=== PATIENT | male | born 1945 | race Caucasian/White ===

== ENCOUNTER → 2018-12-15 08:02 | Outpatient (CLI) | payer MEDICARE, SELFPAY ==
[2018-12-15 10:23] LABS: Add Manual Diff / Slide Review NO; Basophils Absolute Auto 100 /uL (0-100); Basophils Percent Auto 1.6 % (0-2); Eosinophils Absolute Auto 800 /uL (0-450); Eosinophils Percent Auto 10.2 % (2-4); Hematocrit 40.7 % (41-53); Lymphocytes Absolute Auto 1500 /uL (1100-4500); Lymphocytes Percent Auto 17.9 % (25-40); Mean Corpuscular HGB Conc 34.4 % (30-36); Mean Corpuscular Hemoglobin 32.5 PG (26-34); Mean Corpuscular Volume 94.7 fL (80-100); Monocytes Absolute Auto 900 /uL (0-900); Neutrophils Absolute Auto 4900 /uL (1500-7000); Neutrophils Percent Auto 59.3 % (50-75); Red Cell Distribution Width 14.7 % (11.6-14.8); White Blood Cell Count 8.3 X10^3/uL (4.5-11.0)
[2018-12-15 10:30] LABS: Platelet Count 949 X10^3/uL (150-400)
[2018-12-15 10:43] LABS: Platelet Estimate Increased on smear
[2018-12-15 11:10] LABS: Alanine Aminotransferase 38 IU/L (21-72); Albumin 4.2 g/dL (3.5-5.0); Albumin Globulin Ratio 1.4 (1.0-2.8); Alkaline Phosphatase 61 U/L (38-126); Aspartate Aminotransferase 39 IU/L (17-59); BUN Creatinine Ratio 22.5 (6-22); Bilirubin Total 0.3 mg/dL (0.2-1.3); Blood Urea Nitrogen 18 mg/dL (9-20); Calcium 9.3 mg/dL (8.4-10.2); Carbon Dioxide 25 mmol/L (22-32); Chloride 104 mmol/L (98-107); Cholesterol 190 mg/dL (140-199); Estimated Glomerular Filt Rate > 60.0 mL/min (>60); Glucose 92 mg/dL (80-110); HDL Cholesterol 38 mg/dL (40-60); HEMOLYSIS < 15 (0-50); LDL Cholesterol Calculated 123 mg/dL (<100); Potassium 3.9 mmol/L (3.4-5.1); Sodium 139 mmol/L (137-145); Total Protein 7.2 g/dL (6.3-8.2); Triglycerides 146 mg/dL (35-150)
[2018-12-15 11:30] LABS: Appearance Urine UA CLEAR; Bilirubin Urine UA NEGATIVE (NEGATIVE); Color Urine UA YELLOW; Glucose Urine UA NEGATIVE (Negative); Ketones Urine UA NEGATIVE (NEGATIVE); Leukocyte Esterase Urine UA NEGATIVE (NEGATIVE); Nitrite Urine UA NEGATIVE (Negative); Occult Blood Urine UA NEGATIVE (Negative); Protein Urine UA NEGATIVE (Negative); Specific Gravity Urine UA 1.025 (1.000-1.035); Thyroid Stimulating Hormone 3.13 uIU/mL (0.47-4.68); Urobilinogen Urine UA 0.2 E.U./dL (0.2)
[2018-12-15 11:37] LABS: Prostate Specific Antigen Scrn 2.68 ng/mL (0.1-4.0)
== END ==
PROVIDERS: PCP Family Medicine; Visit Provider Family Medicine
DX: Z13.220 Encounter for screening for lipoid disorders (principal); Z13.29 Encounter for screening for other suspected endocrine disorder; Z51.81 Encounter for therapeutic drug level monitoring; Z12.5 Encounter for screening for malignant neoplasm of prostate
CPT/HCPCS: 36415; 80053; 80061; 81003; 84443; 85025; G0103

== ENCOUNTER → 2018-12-17 07:14 | Outpatient (CLI) | payer MEDICARE, SELFPAY ==
[2018-12-17 07:36] LABS: Hematocrit 41.9 % (41-53); Mean Corpuscular HGB Conc 33.5 % (30-36); Mean Corpuscular Hemoglobin 31.7 PG (26-34); Mean Corpuscular Volume 94.6 fL (80-100); Red Blood Cell Count 4.43 X10^6/uL (4.5-5.9); Red Cell Distribution Width 14.5 % (11.6-14.8); White Blood Cell Count 9.3 X10^3/uL (4.5-11.0)
[2018-12-17 07:42] LABS: Platelet Count 906 X10^3/uL (150-400)
[2018-12-17 08:17] LABS: Neutrophils Absolute Manual 3999 /uL (3000-5900); Total Cells Counted 100
[2018-12-17 08:21] LABS: RBC Morphology Normal Morphology
== END ==
PROVIDERS: PCP Family Medicine; Visit Provider Family Medicine
DX: R79.89 Other specified abnormal findings of blood chemistry (principal)
CPT/HCPCS: 36415; 85025

== ENCOUNTER → 2019-06-22 07:12 | Outpatient (CLI) | payer MEDICARE, SELFPAY ==
--- NOTE | 2019-06-22 07:14 | DI.US.S_ITS ---
PROCEDURE: US ABDOMEN COMPLETE INDICATIONS: ESSENTIAL THROMBOCYTOSIS TECHNIQUE: Real-time scanning was performed of the abdominal and retroperitoneal organs, with image documentation. COMPARISON: None. FINDINGS: Liver: Liver is normal in size and homogeneous in echotexture. Gallbladder: Gallbladder is normal. No gallstones. No gallbladder wall thickening, pericholecystic fluid or sonographic Hitchcock's sign. Biliary ducts: Intrahepatic bile ducts are non-dilated. Extrahepatic bile duct caliber measures 3.3 mm. Normal is 6-7 mm or less in diameter, or 10 mm or less post-cholecystectomy. Pancreas: Visualized portions of the pancreas are sonographically normal. Spleen: Spleen is normal in size and homogeneous in echotexture measuring 10.8 cm in length with an estimated volume of 159 cc. The splenic vein is patent. Kidneys: Kidneys are normal in size and echotexture. Right kidney measures 10.7 cm long; left kidney measures 10.4 cm long. No hydronephrosis or nephrolithiasis. No solid masses. Aorta: Mild fusiform dilation of the distal abdominal aorta measuring 2.9 x 2.6 cm. Iliacs: Proximal common iliac arteries are obscured. IVC: Intrahepatic inferior vena cava is patent. Miscellaneous: No free abdominal fluid. IMPRESSION: 1. Mild abdominal aortic ectasia measuring 2.9 x 2.6 cm in the distal abdominal aorta. Recommend followup ultrasound in 5 years. 2. Otherwise normal abdominal ultrasound exam. Dictated by: Gumaro Tyson M.D. on 06/22/2019 at 8:07 Approved by: Gumaro Tyson M.D. on 06/22/2019 at 8:14
== END ==
PROVIDERS: PCP Family Medicine; Visit Provider Internal Medicine Hematology & Oncology
DX: D47.3 Essential (hemorrhagic) thrombocythemia (principal); I77.811 Abdominal aortic ectasia
CPT/HCPCS: 76700

== ENCOUNTER → 2019-06-30 08:31 | Outpatient (CLI) | payer MEDICARE, SELFPAY ==
[2019-06-30 08:51] LABS: Add Manual Diff / Slide Review NO; Basophils Absolute Auto 100 /uL (0-100); Basophils Percent Auto 1.1 % (0-2); Eosinophils Absolute Auto 800 /uL (0-450); Eosinophils Percent Auto 9.9 % (2-4); Hematocrit 36.7 % (41-53); Hemoglobin 12.6 g/dL (13.5-17.5); Lymphocytes Absolute Auto 1200 /uL (1100-4500); Lymphocytes Percent Auto 15.3 % (25-40); Mean Corpuscular HGB Conc 34.4 % (30-36); Mean Corpuscular Hemoglobin 32.8 PG (26-34); Mean Corpuscular Volume 95.5 fL (80-100); Monocytes Absolute Auto 800 /uL (0-900); Monocytes Percent Auto 10.8 % (3-14); Neutrophils Absolute Auto 4800 /uL (1500-7000); Neutrophils Percent Auto 62.9 % (50-75); Red Blood Cell Count 3.85 X10^6/uL (4.5-5.9); Red Cell Distribution Width 14.9 % (11.6-14.8); White Blood Cell Count 7.6 X10^3/uL (4.5-11.0)
[2019-06-30 09:11] LABS: Alanine Aminotransferase 34 IU/L (<50); Albumin Globulin Ratio 1.5 (1.0-2.8); Alkaline Phosphatase 60 U/L (38-126); Aspartate Aminotransferase 37 IU/L (17-59); Bilirubin Total 0.4 mg/dL (0.2-1.3); Blood Urea Nitrogen 20 mg/dL (9-20); Calcium 9.3 mg/dL (8.4-10.2); Carbon Dioxide 26 mmol/L (22-32); Chloride 107 mmol/L (98-107); Estimated Glomerular Filt Rate > 60.0 mL/min (>60); Globulin 2.7 g/dL (1.7-4.1); Glucose 96 mg/dL (80-110); HEMOLYSIS < 15 (0-50); Potassium 4.2 mmol/L (3.4-5.1); Sodium 141 mmol/L (137-145); Total Protein 6.7 g/dL (6.3-8.2)
[2019-06-30 09:15] LABS: Platelet Count 760 X10^3/uL (150-400); RBC Morphology Normal Morphology
== END ==
PROVIDERS: PCP Family Medicine; Visit Provider Internal Medicine Hematology & Oncology
DX: D47.3 Essential (hemorrhagic) thrombocythemia (principal)
CPT/HCPCS: 36415; 80053; 85025

== ENCOUNTER 2019-07-28 02:10 | Emergency (ER) | payer MEDICARE, SELFPAY ==
[2019-07-28] VITALS (7 sets, daily range): BP systolic 135–160; BP diastolic 55–66; PULSE 102–115; RESP 20–24; TEMP 38.2–39.6; O2SAT 93–94; BMI 25.8
--- NOTE | 2019-07-28 02:17 | DI.RAD.S_ITS ---
PROCEDURE: XR CHEST 1V INDICATIONS: cough fever TECHNIQUE: One view of the chest was acquired. COMPARISON: [facility], , CHEST 2 VIEW, 11/14/2017, 15:59. FINDINGS: Surgical changes and devices: None. Lungs and pleura: Lungs are clear. No pleural effusions or pneumothorax. Mediastinum: Mediastinal contours appear normal. Heart size is normal. Bones and chest wall: No suspicious bony lesions. Overlying soft tissues appear unremarkable. IMPRESSION: 1. No acute cardiopulmonary disease. Dictated by: Michoacano Rankin M.D. on 07/28/2019 at 9:52 Approved by: Michoacano Rankin M.D. on 07/28/2019 at 9:52
[2019-07-28 02:34] LABS: Add Manual Diff / Slide Review NO; Basophils Absolute Auto 0 /uL (0-100); Basophils Percent Auto 0.2 % (0-2); Eosinophils Absolute Auto 100 /uL (0-450); Eosinophils Percent Auto 0.7 % (2-4); Hemoglobin 12.3 g/dL (13.5-17.5); Lymphocytes Absolute Auto 200 /uL (1100-4500); Mean Corpuscular HGB Conc 35.1 % (30-36); Mean Corpuscular Hemoglobin 33.1 PG (26-34); Mean Corpuscular Volume 94.2 fL (80-100); Monocytes Absolute Auto 400 /uL (0-900); Monocytes Percent Auto 5.9 % (3-14); Neutrophils Absolute Auto 6300 /uL (1500-7000); Neutrophils Percent Auto 90.2 % (50-75); Platelet Count 492 X10^3/uL (150-400); Red Blood Cell Count 3.72 X10^6/uL (4.5-5.9); Red Cell Distribution Width 15.6 % (11.6-14.8)
[2019-07-28 02:43] LABS: Lactate (Lactic Acid) 1.2 mmol/L (0.7-2.1)
[2019-07-28] MEDS: SODIUM CHLORIDE 0.9% 1,000 ML 1000 ML IV ×2 (02:43→03:43)
[2019-07-28] MEDS: KETOROLAC 60 MG/2 ML VIAL 30 MG IV (02:44)
[2019-07-28 02:45] LABS: Alanine Aminotransferase 41 IU/L (<50); Albumin 4.2 g/dL (3.5-5.0); Albumin Globulin Ratio 1.4 (1.0-2.8); Alkaline Phosphatase 72 U/L (38-126); Aspartate Aminotransferase 45 IU/L (17-59); BUN Creatinine Ratio 24.4 (6-22); Bilirubin Total 0.4 mg/dL (0.2-1.3); Blood Urea Nitrogen 22 mg/dL (9-20); Calcium 9.2 mg/dL (8.4-10.2); Carbon Dioxide 26 mmol/L (22-32); Chloride 102 mmol/L (98-107); Creatine Kinase 25 U/L (55-170); Estimated Glomerular Filt Rate > 60.0 mL/min (>60); Glucose 141 mg/dL (80-110); HEMOLYSIS < 15 (0-50); Sodium 136 mmol/L (137-145); Total Protein 7.2 g/dL (6.3-8.2)
[2019-07-28 02:56] LABS: Troponin I 0.016 ng/mL (0.01-0.034)
[2019-07-28 03:02] LABS: Influenza A - CEPHEID Flu A NEGATIVE (NEGATIVE); Influenza B - CEPHEID Flu B NEGATIVE (NEGATIVE)
--- NOTE | 2019-07-28 03:04 | ED.AMS ---
HPI - Altered Mental Status General Chief Complaint: Altered Mental Status Stated Complaint: disoriented, weak shaking Time Seen by Provider: 07/28/19 02:17 Source: family Mode of arrival: Wheelchair Limitations: altered mental status History of Present Illness HPI narrative: Patient is a 74-year-old male with history of polycythemia vera, brought in by his for shaking and confusion started at 11pm. She states he has not been feeling well for the last few days, he has had cough any had at episode of shaking the night before by PCP is 2 days ago thought to have respiratory virus, he was given his influenza vaccine and discharged. Today he has been weaker but able to oyster picker granddaughter he did go to bed a little early she was not asleep yet when she noticed that he was shaking and seemed very confused. No slurring of speech or unilateral weakness. He currently is confused about his the gilberto state and age but is overall able to follow directions. He is noted to have a fever of 103 in the emergency department. He apparently had bone marrow biopsy last week in his right hip. There initially was a rash which continues to be persistent however states that it doesn't seem to be any worse. It was previously tender but over last few days has become nontender. MD complaint: confusion Onset (ago): hour(s) Related Data Home Medications Medication Instructions Recorded Confirmed montelukast 10 mg tablet 10 mg PO QPM 12/14/18 07/26/19 aspirin 81 mg PO DAILY 01/14/19 07/26/19 albuterol sulfate [Ventolin HFA] 1 puff INH Q6HP PRN 03/08/19 07/26/19 Previous Rx's Medication Instructions Recorded Symbicort 2 inh INH BID #3 inh 10/28/17 hydroxyurea 500 mg PO DAILY #90 cap 06/17/19 Allergies Allergy/AdvReac Type Severity Reaction Status Date / Time iodine [IODINE] Allergy Unknown Verified 07/26/19 13:57 Review of Systems Review of Systems ROS Unobtainable: All systems reviewed & are unremarkable except as noted in HPI and below Constitutional Constitutional: Reports as per HPI, Reports fever(s), Denies frequent falls and Reports weakness ENT Ears, Nose, Mouth, and Throat: Denies change in voice, Denies neck pain and Denies sore throat Cardiovascular Cardiovascular: Denies chest pain, Denies irregular heart rhythm, Denies lightheadedness, Denies palpitations, Denies dyspnea, Denies dyspnea on exertion and Denies orthopnea Respiratory Respiratory: Reports cough, Denies dyspnea, Denies dyspnea on exertion and Denies wheezing Genitourinary Genitourinary: Denies hematuria, Denies flank pain, Denies urinary incontinence and Denies urinary urgency Musculoskeletal Musculoskeletal: Denies neck pain Neurologic Neurologic: Reports as per HPI, Denies abnormal speech, Reports confusion, Denies frequent falls, Denies convulsions and Reports weakness Psychiatric Psychiatric: Reports confusion Endocrine Endocrine: Denies palpitations Allergic/Immunologic Allergic/Immunologic: Denies wheezing Patient History Medical History Asthma (Acute) Polycythemia vera (Acute) Surgical History Status post hernia repair Family History Sister Cancer Sister Cancer Social History Smoking Status: Former smoker Tobacco: How many years used: 7 alcohol intake: current substance use type: does not use Smoking Status: Former smoker alcohol intake frequency: other Exam Initial Vital Signs Initial Vital Signs: Vital Signs Temperature 103.2 F H 07/28/19 02:15 Pulse Rate 115 H 07/28/19 02:15 Respiratory Rate 22 07/28/19 02:15 Blood Pressure 160/61 H 07/28/19 02:15 Pulse Oximetry 94 07/28/19 02:15 GENERAL: Awake alert elderly male and in no acute distress. HEENT: Head atraumatic,EOMI, pupils reactive, face symmetric, CARDIOVASCULAR: Tachycardic regular no murmurs RESPIRATORY: Breath sounds equal bilaterally, no wheezes rales or rhonchi. ABDOMEN: Soft, nontender. Normoactive bowel sounds all 4 quadrants. No guarding or rebound. EXTREMITIES: Normal range of motion, no clubbing or edema. Neurovascularly intact NEUROLOGICAL: Alert and oriented person only hand buffing wheel former strength equal bilaterally face symmetric no blurry vision or double vision moving extremities able to help transfer from wheelchair to gurney SKIN: Warm, dry, no laceration, no petechiae, no rashes or lesions. Right flank just above the iliac crest as the site of biopsy there is a very minimal rash noted there no induration no fluctuation no sign of acute infection Scores GCS [place] coma scale eye opening: Spontaneous Andree coma scale verbal response: Confused [place]ree coma scale motor response: Obey commands [place] coma scale total score: 14 NIH Stroke Scale Level of Conciousness: Alert, keenly responsive Ask month/age: Answers both questions correctly. Open/close eyes, close hand: Performs both tasks correctly Best gaze horizontal: Normal Visual peña: No visual loss Facial palsy: Normal symetrical movement Left arm drift: No drift for full 10 sec Right arm drift: No drift for full 10 sec Left leg drift: No drift for full 10 sec Right leg drift: No drift for full 10 sec Limb ataxia: Absent Sensory on face/arms/legs: Normal, no sensory loss Best language: No aphasia, normal Dysarthria: Normal Extinction or inattention: No abnormality Total NIH Stroke scale score: 0 Course Orders Ordered: ED Orders 07/28/19 02:17 XR chest 1V Stat EKG-12 Lead Stat 07/28/19 02:25 Complete Blood Count AUTO DIFF Stat Comprehensive Metabolic Panel Stat Influenza A & B (PCR) Stat Lactate (Lactic Acid) Stat Procalcitonin Stat Troponin & CK Cardiac Panel Stat 07/28/19 02:58 Blood Culture Stat 07/28/19 03:25 Respiratory Panel (Film Array) Stat Discontinued Medications Sodium Chloride (Normal Saline 0.9%) 1,000 mls @ 1,000 mls/hr IV CONT WOODY Last Infusion: 07/28/19 03:43 Dose: 0 mls/hr Documented by: Admin: 07/28/19 02:43 Dose: 1,000 mls/hr Documented by: ANNE Sodium Chloride (Normal Saline 0.9%) 1,000 mls @ 1,000 mls/hr IV BOLUS ONE Stop: 07/28/19 04:29 Last Infusion: 07/28/19 05:12 Dose: 0 mls/hr Documented by: Admin: 07/28/19 03:43 Dose: 1,000 mls/hr Documented by: ANNE Ketorolac Tromethamine (Toradol) 30 mg IV NOW ONE Stop: 07/28/19 02:34 Last Admin: 07/28/19 02:44 Dose: 30 mg Documented by: HGUBERN Vital Signs Vital signs: Vital Signs - 8 hr 07/28/19 02:15 07/28/19 03:20 07/28/19 03:25 Temperature 103.2 F H 102.7 F H Pulse Rate 115 H 102 H Respiratory Rate 22 21 Blood Pressure 160/61 H Blood Pressure [Right Arm] 139/55 L Pulse Oximetry 94 94 07/28/19 03:44 07/28/19 04:04 07/28/19 04:06 Temperature 102.7 F H 100.7 F H Pulse Rate 105 H Respiratory Rate 20 Blood Pressure Blood Pressure [Right Arm] 135/65 Pulse Oximetry 94 07/28/19 04:52 Temperature Pulse Rate 104 H Respiratory Rate 24 Blood Pressure Blood Pressure [Right Arm] 136/66 Pulse Oximetry 93 MDM - Altered Mental Status Lab Data Attestation: I reviewed the patient's lab results. Result diagrams: 07/28/19 02:25 07/28/19 02:25 Labs: Lab Results 07/28/19 07/28/19 07/28/19 Range/Units 02:25 02:25 02:25 WBC 7.0 (4.5-11.0) X10^3/uL RBC 3.72 L (4.5-5.9) X10^6/uL Hgb 12.3 L (13.5-17.5) g/dL Hct 35.0 L (41-53) % MCV 94.2 (80-100) fL MCH 33.1 (26-34) PG MCHC 35.1 (30-36) % RDW 15.6 H (11.6-14.8) % Plt Count 492 H (150-400) X10^3/uL Neut % (Auto) 90.2 H (50-75) % Lymph % (Auto) 3.0 L (25-40) % [place] % (Auto) 5.9 (3-14) % Eos % (Auto) 0.7 L (2-4) % Baso % (Auto) 0.2 (0-2) % Neut # (Auto) 6300 (8720-4871) /uL Lymph # (Auto) 200 L (0809-8426) /uL [place] # (Auto) 400 (0-900) /uL Eos # (Auto) 100 (0-450) /uL Baso # (Auto) 0 (0-100) /uL Sodium 136 L (137-145) mmol/L Potassium 4.0 (3.4-5.1) mmol/L Chloride 102 (98-107) mmol/L Carbon Dioxide 26 (22-32) mmol/L BUN 22 H (9-20) mg/dL Creatinine 0.90 (0.66-1.25) mg/dL Estimated GFR > 60.0 (>60) mL/min BUN/Creatinine Ratio 24.4 H (6-22) Glucose 141 H (80-110) mg/dL Lactate (0.7-2.1) mmol/L Calcium 9.2 (8.4-10.2) mg/dL Total Bilirubin 0.4 (0.2-1.3) mg/dL AST 45 (17-59) IU/L ALT 41 (<50) IU/L Alkaline Phosphatase 72 (38-126) U/L Total Creatine Kinase 25 L (55-170) U/L CK-MB (CK-2) TNP CK-MB (CK-2) Rel Index TNP Troponin I 0.016 (0.01-0.034) ng/mL Total Protein 7.2 (6.3-8.2) g/dL Albumin 4.2 (3.5-5.0) g/dL Globulin 3.0 (1.7-4.1) g/dL Albumin/Globulin Ratio 1.4 (1.0-2.8) Procalcitonin 0.19 (<0.5) ng/mL Chlamy pneumoniae PCR (Not Detect) Adenovirus (PCR) (Not Detect) B.parapertussis DNA PCR (Not Detect) Coronavirus OC43 (PCR) (Not Detect) Coronavirus HKU1 (PCR) (Not Detect) Coronavirus 229E (PCR) (Not Detect) Coronavirus NL63 (PCR) (Not Detect) Human Metapneumovir PCR (Not Detect) Influenza A (RT-PCR) (NEGATIVE) Influenza Type A (PCR) (Not Detect) Influenza B (RT-PCR) (NEGATIVE) Influenza Type B (PCR) (Not Detect) M. pneumoniae (PCR) (Not Detect) Parainfluenza 1 (PCR) (Not Detect) Parainfluenza 2 (PCR) (Not Detect) Parainfluenza 3 (PCR) (Not Detect) Parainfluenza 4 (PCR) (Not Detect) RSV (PCR) (Not Detect) Entero/Rhino (PCR) (Not Detect) 07/28/19 07/28/19 07/28/19 Range/Units 02:25 02:25 03:25 WBC (4.5-11.0) X10^3/uL RBC (4.5-5.9) X10^6/uL Hgb (13.5-17.5) g/dL Hct (41-53) % MCV (80-100) fL MCH (26-34) PG MCHC (30-36) % RDW (11.6-14.8) % Plt Count (150-400) X10^3/uL Neut % (Auto) (50-75) % Lymph % (Auto) (25-40) % [place] % (Auto) (3-14) % Eos % (Auto) (2-4) % Baso % (Auto) (0-2) % Neut # (Auto) (8485-0554) /uL Lymph # (Auto) (6419-0082) /uL [place] # (Auto) (0-900) /uL Eos # (Auto) (0-450) /uL Baso # (Auto) (0-100) /uL Sodium (137-145) mmol/L Potassium (3.4-5.1) mmol/L Chloride (98-107) mmol/L Carbon Dioxide (22-32) mmol/L BUN (9-20) mg/dL Creatinine (0.66-1.25) mg/dL Estimated GFR (>60) mL/min BUN/Creatinine Ratio (6-22) Glucose (80-110) mg/dL Lactate 1.2 (0.7-2.1) mmol/L Calcium (8.4-10.2) mg/dL Total Bilirubin (0.2-1.3) mg/dL AST (17-59) IU/L ALT (<50) IU/L Alkaline Phosphatase (38-126) U/L Total Creatine Kinase (55-170) U/L CK-MB (CK-2) CK-MB (CK-2) Rel Index Troponin I (0.01-0.034) ng/mL Total Protein (6.3-8.2) g/dL Albumin (3.5-5.0) g/dL Globulin (1.7-4.1) g/dL Albumin/Globulin Ratio (1.0-2.8) Procalcitonin (<0.5) ng/mL Chlamy pneumoniae PCR Not detected (Not Detect) Adenovirus (PCR) Not detected (Not Detect) B.parapertussis DNA PCR Not detected (Not Detect) Coronavirus OC43 (PCR) Not detected (Not Detect) Coronavirus HKU1 (PCR) Not detected (Not Detect) Coronavirus 229E (PCR) Not detected (Not Detect) Coronavirus NL63 (PCR) Not detected (Not Detect) Human Metapneumovir PCR Not detected (Not Detect) Influenza A (RT-PCR) Flu a negative (NEGATIVE) Influenza Type A (PCR) Not detected (Not Detect) Influenza B (RT-PCR) Flu b negative (NEGATIVE) Influenza Type B (PCR) Not detected (Not Detect) M. pneumoniae (PCR) Not detected (Not Detect) Parainfluenza 1 (PCR) Not detected (Not Detect) Parainfluenza 2 (PCR) Not detected (Not Detect) Parainfluenza 3 (PCR) Not detected (Not Detect) Parainfluenza 4 (PCR) Not detected (Not Detect) RSV (PCR) Not detected (Not Detect) Entero/Rhino (PCR) Not detected (Not Detect) Urine Dip Bedside Urine Glucose Negative Bedside Urine Bilirubin - Negative Bedside Urine Ketone +/- 5 Urine Specific Industry 1.025 Bedside Urine Occult Blood - Negative Bedside Urine pH 5.5 Bedside Urine Protein +/- 15 Bedside Urine Nitrite - Negative Bedside Urine Leukocytes - Negative Esterase Imaging Data Chest x-ray: Attestation: I personally reviewed and interpreted this imaging study as follows: My impression: No acute cardiopulmonary process ECG Data Attestation: I personally reviewed and interpreted this ECG as follows: Prior ECG tracings: not available for review Interpretation: Normal sinus rhythm rate 1029 p.r. interval 148 QRS [address] elevation depression no T-wave inversion no prior to compare [facility] Narrative Medical decision making narrative: Patient presents with infectious like systems of shaking and confusion with fever of 103. He has had some cough upper respiratory like symptoms. Respiratory panel influenza and chest x-ray are all negative. He has no leukocytosis elevated procalcitonin her lactic acid at this time no indication for antibiotics. As his temperature has decreased and he has received IV fluids he has overall come around and back to his baseline. He is ambulatory in the emergency department without any difficulty. He feels ready in able to go home. I do suspect that this may be influenza however initial influenza testing is negative. I discussed with patient and to increase fluids, and warning signs when to return to the emergency department. At this time no indication for admission. His symptoms have improved. His heart rate has also come down with IV fluids. Received 2 L while emergency department. I discussed all findings with the patient and , Education has been performed regarding treatment plan, diagnosis, warning signs and symptoms and all concerns have been addressed. Verbally agree with and understood all of the above. Discharge Plan Departure Patient Disposition: Home Clinical Impression: URI (upper respiratory infection) Qualifiers: URI type: unspecified viral URI Qualified Code(s): J06.9 - Acute upper respiratory infection, unspecified Discharge Date/Time: 07/28/19 05:10 Instructions: DI for Viral Syndrome Activity Restrictions/Additional Instructions: *You have been diagnosed with viral syndrome *What to do: Likely upper respiratory infection, influenza and viral panel are negative blood work overall is reassuring recommend fever control and increasing fluid intake. Infusion is likely due to fever and infection today. *Continue to take medications as directed Tylenol 650 mg every 4-6 hours if needed for fever Ibuprofen 600 mg every 6-8 hours if *Follow up with your primary care provider in 2-3 days *Return to ER if you should have increased confusion, shortness of breath, persistent cough, or any new, worsening or concerning symptoms Prescriptions: No Action Symbicort 80 MCG/4.5 MCG HFA aerosol inhaler 2 inh INH BID Qty: 3 RF: 1 montelukast [Singulair] 10 mg tablet 10 mg PO QPM RF: 0 aspirin 81 mg Tablet,Chewable 81 mg PO DAILY RF: 0 albuterol sulfate [Ventolin HFA] 90 MCG/PUFF HFA aerosol inhaler 1 puff INH Q6HP PRN (Reason: Shortness Of Breath) RF: 0 hydroxyurea 500 mg Capsule 500 mg PO DAILY Qty: 90 RF: 3 Referrals: Miryam Coats DO [Primary Care Provider] -
[2019-07-28 03:09] LABS: Procalcitonin 0.19 ng/mL (<0.5)
[2019-07-28 04:42] LABS: Adenovirus Not Detected (Not Detect); Bordetella pertussis Not Detected (Not Detect); Chlamydophila pneumoniae Not Detected (Not Detect); Coronavirus 229E Not Detected (Not Detect); Coronavirus HKU1 Not Detected (Not Detect); Coronavirus NL 63 Not Detected (Not Detect); Coronavirus OC43 Not Detected (Not Detect); Human Metapneumovirus Not Detected (Not Detect); Human Rhinovirus/Enterovirus Not Detected (Not Detect); Influenza A Not Detected (Not Detect); Influenza B Not Detected (Not Detect); Mycoplasma pneumoniae Not Detected (Not Detect); Parainfluenza Virus 1 Not Detected (Not Detect); Parainfluenza Virus 2 Not Detected (Not Detect); Parainfluenza Virus 3 Not Detected (Not Detect); Parainfluenza Virus 4 Not Detected (Not Detect); Respiratory Syncytial Virus Not Detected (Not Detect)
== END 2019-07-28 05:10 | disposition home or self-care (01) ==
PROVIDERS: Emergency Provider Emergency Medicine; PCP Family Medicine
DX: J06.9 Acute upper respiratory infection, unspecified (principal); R00.0 Tachycardia, unspecified
CPT/HCPCS: 36415; 71045; 80053; 81003; 82550; 83605; 84145; 84484; 85025; 87040; 87502; 87633; 93005; 93010; 96361; 96374; 99284; 99285; J1885

== ENCOUNTER → 2020-01-10 09:29 | Outpatient (CLI) | payer MEDICARE, SELFPAY ==
[2020-01-10 10:32] LABS: Add Manual Diff / Slide Review NO; Basophils Absolute Auto 100 /uL (0-100); Basophils Percent Auto 1.4 % (0-2); Eosinophils Absolute Auto 200 /uL (0-450); Eosinophils Percent Auto 2.9 % (2-4); Hematocrit 37.3 % (41-53); Hemoglobin 12.8 g/dL (13.5-17.5); Lymphocytes Absolute Auto 1500 /uL (1100-4500); Lymphocytes Percent Auto 18.2 % (25-40); Mean Corpuscular HGB Conc 34.3 % (30-36); Mean Corpuscular Hemoglobin 34.9 PG (26-34); Mean Corpuscular Volume 101.8 fL (80-100); Monocytes Absolute Auto 800 /uL (0-900); Monocytes Percent Auto 10.1 % (3-14); Neutrophils Absolute Auto 5600 /uL (1500-7000); Neutrophils Percent Auto 67.4 % (50-75); Platelet Count 738 X10^3/uL (150-400); Red Blood Cell Count 3.67 X10^6/uL (4.5-5.9); Red Cell Distribution Width 16.3 % (11.6-14.8); White Blood Cell Count 8.3 X10^3/uL (4.5-11.0)
== END ==
PROVIDERS: PCP Family Medicine; Referring Provider Internal Medicine Hematology & Oncology; Visit Provider Internal Medicine Hematology & Oncology
DX: D47.3 Essential (hemorrhagic) thrombocythemia (principal)
CPT/HCPCS: 36415; 85025

== ENCOUNTER → 2020-02-19 11:48 | Outpatient (CLI) | payer MEDICARE, SELFPAY ==
[2020-02-21 15:10] LABS: Fecal Immunochemical Test Negative (Negative)
== END ==
PROVIDERS: PCP Internal Medicine; Referring Provider Internal Medicine; Visit Provider Internal Medicine
DX: Z12.11 Encounter for screening for malignant neoplasm of colon (principal)
CPT/HCPCS: 82274

== ENCOUNTER → 2020-03-27 14:44 | Outpatient (CLI) | payer MEDICARE, SELFPAY ==
[2020-03-28 07:38] LABS: PSA Free % 14.4 % (.); PSA, Total 4.8 ng/mL (0.0-4.0)
== END ==
PROVIDERS: PCP Internal Medicine; Referring Provider Internal Medicine; Visit Provider Internal Medicine
DX: R97.20 Elevated prostate specific antigen [PSA] (principal)
CPT/HCPCS: 36415; 84153; 84154

== ENCOUNTER → 2020-09-08 11:24 | Outpatient (CLI) | payer MEDICARE, SELFPAY ==
[2020-09-08] MEDS: COVID-19 VACC #1, MRNA(MOD) 100 MCG/0.5 ML VIAL IM (11:32)
== END ==
PROVIDERS: PCP Internal Medicine; Visit Provider Internal Medicine
DX: Z23 Encounter for immunization (principal)
CPT/HCPCS: 0011A; 91301

== ENCOUNTER → 2020-09-29 13:38 | Outpatient (CLI) | payer MEDICARE, SELFPAY ==
[2020-09-29 13:59] LABS: Add Manual Diff / Slide Review NO; Basophils Absolute Auto 100 /uL (0-100); Basophils Percent Auto 1.2 % (0-2); Eosinophils Absolute Auto 300 /uL (0-450); Eosinophils Percent Auto 5.8 % (2-4); Hematocrit 35.5 % (41-53); Hemoglobin 12.2 g/dL (13.5-17.5); Lymphocytes Absolute Auto 900 /uL (1100-4500); Lymphocytes Percent Auto 18.5 % (25-40); Mean Corpuscular HGB Conc 34.5 % (30-36); Mean Corpuscular Volume 110.3 fL (80-100); Monocytes Absolute Auto 500 /uL (0-900); Monocytes Percent Auto 10.7 % (3-14); Neutrophils Absolute Auto 3000 /uL (1500-7000); Neutrophils Percent Auto 63.8 % (50-75); Platelet Count 638 X10^3/uL (150-400); Red Blood Cell Count 3.22 X10^6/uL (4.5-5.9); Red Cell Distribution Width 14.4 % (11.6-14.8); White Blood Cell Count 4.7 X10^3/uL (4.5-11.0)
[2020-09-29 14:12] LABS: Macrocytosis 1+
[2020-09-29 14:13] LABS: Platelet Estimate Increased on smear
== END ==
PROVIDERS: Internal Medicine Hematology & Oncology; PCP Internal Medicine; Referring Provider Internal Medicine; Visit Provider Internal Medicine
DX: R97.20 Elevated prostate specific antigen [PSA] (principal); D47.3 Essential (hemorrhagic) thrombocythemia
CPT/HCPCS: 36415; 84153; 85025

== ENCOUNTER → 2020-10-06 11:12 | Outpatient (CLI) | payer MEDICARE, SELFPAY ==
[2020-10-06] MEDS: COVID-19 VACC #2, MRNA(MOD) 100 MCG/0.5 ML VIAL IM (11:14)
== END ==
PROVIDERS: PCP Internal Medicine; Visit Provider Internal Medicine
DX: Z23 Encounter for immunization (principal)
CPT/HCPCS: 0012A; 91301

== ENCOUNTER 2021-01-08 13:16 | Emergency (ER) | payer MEDICARE, SELFPAY ==
[2021-01-08 13:29] VITALS: BP 165/81; PULSE 96; RESP 18; TEMP 37.1; O2SAT 96; BMI 25.5
[2021-01-08 16:08] VITALS: BP 181/85; PULSE 76; TEMP 36.6; O2SAT 98
[2021-01-08] MEDS: BACITRACIN OINT 0.9 GM PCKT 1 APPLIC TOP (16:19)
[2021-01-08] MEDS: LIDO 1%/SOD BICARB 8.4% (10ML) 10 ML SYRINGE INJ (16:19)
[2021-01-08] MEDS: LIDOCAINE 2% W/EPI INJ 20 ML INJ (16:19)
--- NOTE | 2021-01-08 17:29 | PC.NURSE ---
U shape laceration involving 4th/5th digit.
--- NOTE | 2021-01-08 18:04 | ED_ITS ---
HPI - Extremity Injury (Upper) <KATIANA Gates - Last Filed: 01/08/21 23:13> General Chief Complaint: Extremity Injury, Upper Stated Complaint: Sliced Left Hand Time Seen by Provider: 01/08/21 16:11 Source: patient Mode of arrival: Ambulatory Limitations: no limitations History of Present Illness HPI narrative: This is a pleasant 75-year-old male, former smoker, who has past medical history significant for thrombocytosis presents to ED with chief complain of left hand, non dominant hand, laceration. 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 He states probably cut his hand on metal piece when he pulled the hand out. He reports intact sensation and is able to move all finger joints and flex and extend the affected hand. Last Td is unsure. Related Data Home Medications Medication Instructions Recorded Confirmed montelukast 10 mg tablet 10 mg PO QPM 12/14/18 01/12/21 aspirin 81 mg PO DAILY 01/14/19 01/12/21 albuterol sulfate [Ventolin HFA] 1 puff INH Q6HP PRN 03/08/19 01/12/21 Previous Rx's Medication Instructions Recorded budesonide-formoterol [Symbicort] 2 inh INH BID #3 inh 10/28/17 hydroxyurea [Hydrea] 500 mg PO USEASDIRECTD #1000 cap 06/26/20 Allergies Allergy/AdvReac Type Severity Reaction Status Date / Time iodine [IODINE] Allergy Unknown Verified 02/15/20 16:07 Review of Systems <KATIANA Gates - Last Filed: 01/08/21 23:13> Review of Systems Narrative: General: Denies fever, chills, fatigue, malaise, sweats. Respiratory: Denies dyspnea, cough, wheezing, hemoptysis, sputum. Cardiovascular: Denies chest pain, palpitations, orthopnea, edema. Gastrointestinal: Denies nausea, vomiting, abdominal pain, diarrhea, constipation, melena. Musculoskeletal: Denies weakness, joint pain or bony pain. Skin: See HPI Patient History <KATIANA Gates - Last Filed: 01/08/21 23:13> Medical History Asthma, mild intermittent Elevated PSA Essential thrombocytosis Surgical History Status post hernia repair Family History Sister Cancer Sister Cancer Social History Smoking Status: Former smoker Tobacco: How many years used: 7 alcohol intake: current substance use type: does not use Smoking Status: Former smoker alcohol intake frequency: other Substance Use Type: does not use Exam <KATIANA Gates - Last Filed: 01/08/21 23:13> Narrative Exam Narrative: General appearance: well developed, well nourished, in no acute distress. Head: normocephalic, atraumatic, no scalp lesions, non-tender. ENT: Hearing grossly intact. Airway patent. Neck/Thyroid: neck supple, full range of motion, no visible masses or meningeal signs. No JVD, non-tender without lymphadenopathy. Skin: 2 cm laceration on base of left ring finger MCP joint on volar aspect with slow oozing. 4 cm U shape flap like laceration on distal metacarpal of little finger of volar aspect of left hand. Heart: no clubbing, no cyanosis, no edema. S1 and S2 normal. RRR w/o murmurs, clicks, or bruits. Lungs: Breathing even and unlabored. No stridor. No accessory muscles used. Able to speak in full sentences. Chest: normal shape and expansion. Abdomen: non-obese, non-distended. Neurologic: alert and oriented. 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 Psych: good eye contact, normal affect. Initial Vital Signs Initial Vital Signs: Vital Signs Temperature 98.8 F 01/08/21 13:29 Pulse Rate 96 H 01/08/21 13:29 Respiratory Rate 18 01/08/21 13:29 Blood Pressure 165/81 H 01/08/21 13:29 Pulse Oximetry 96 01/08/21 13:29 Extrem Left upper extremity: hand Details: abnormal to inspection, neuromotor exam normal, neurosensory exam normal, tendon exam normal, tenderness, vascular exam Details: radial pulse present and normal capillary refill, normal ROM of fingers and laceration; no foreign bodies and no puncture wound <Paigesavanah CannonDO - Last Filed: 01/16/21 02:31> Initial Vital Signs Initial Vital Signs: Vital Signs Temperature 98.8 F 01/08/21 13:29 Pulse Rate 96 H 01/08/21 13:29 Respiratory Rate 18 01/08/21 13:29 Blood Pressure 165/81 H 01/08/21 13:29 Pulse Oximetry 96 01/08/21 13:29 Procedures <Yossi NegronCATE AlcantaraP - Last Filed: 01/08/21 23:13> Laceration Repair Laceration 1: Site: hand (L 5th distal metacarpal) Side (If applicable): left Size (cm): 4 Description: linear and flap Depth: simple, single layer Local Anesthetic: lidocaine 1%, with epi and with bicarb Amount of anesthesia used (mL): 8 Pre-repair: wound explored and irrigated extensively Skin layer closed with: nylon Size (cm): 4-0 Number of sutures: 7 Technique: simple, interrupted Laceration 2: Site: hand (Left 4th base of finger) Size (cm): 2 Description: linear Depth: simple, single layer Local Anesthetic: lidocaine 1%, with epi and with bicarb Amount of anesthesia used (mL): 2 Pre-repair: wound explored and irrigated extensively Skin layer closed with: nylon Size (cm): 4-0 Number of sutures: 3 Technique: simple, interrupted Scores <Yossi NegronCATE AlcantaraP - Last Filed: 01/08/21 23:13> GCS Huxford coma scale eye opening: Spontaneous Andree coma scale verbal response: Orientated Huxford coma scale motor response: Obey commands Andree coma scale total score: 15 Course <Yossi CATE SullivanP - Last Filed: 01/08/21 23:13> Orders Ordered: Discontinued Medications Bacitracin (Bacitracin Oint 0.9 Gm Pckt) 1 applic TOP NOW ONE Stop: 01/08/21 16:13 Last Admin: 01/08/21 16:19 Dose: 1 applic Documented by: YODIT Lidocaine/Epinephrine (Lidocaine 2% W/Epi Inj) 20 ml INJ INTRA-OP ONE Stop: 01/08/21 16:13 Last Admin: 01/08/21 16:19 Dose: 20 ml Documented by: BTONER Lidocaine/Sodium Bicarbonate (Lido 1%/Sod Bicarb 8.4% (10ml) 10 Ml Syringe) 10 ml INJ NOW ONE Stop: 01/08/21 16:13 Last Admin: 01/08/21 16:19 Dose: 10 ml Documented by: BTONER Vital Signs Vital signs: Vital Signs - 8 hr 01/08/21 16:08 01/08/21 18:18 Temperature 97.8 F Pulse Rate 76 89 Respiratory Rate 16 Blood Pressure 181/85 H 190/89 H Pulse Oximetry 98 98 <Paige Cannon DO - Last Filed: 01/16/21 02:31> Orders Ordered: Discontinued Medications Bacitracin (Bacitracin Oint 0.9 Gm Pckt) 1 applic TOP NOW ONE Stop: 01/08/21 16:13 Last Admin: 01/08/21 16:19 Dose: 1 applic Documented by: BTONER Lidocaine/Epinephrine (Lidocaine 2% W/Epi Inj) 20 ml INJ INTRA-OP ONE Stop: 01/08/21 16:13 Last Admin: 01/08/21 16:19 Dose: 20 ml Documented by: BTONER Lidocaine/Sodium Bicarbonate (Lido 1%/Sod Bicarb 8.4% (10ml) 10 Ml Syringe) 10 ml INJ NOW ONE Stop: 01/08/21 16:13 Last Admin: 01/08/21 16:19 Dose: 10 ml Documented by: BTONER Vital Signs Vital signs: Vital Signs - 8 hr 01/08/21 16:08 01/08/21 18:18 Temperature 97.8 F Pulse Rate 76 89 Respiratory Rate 16 Blood Pressure 181/85 H 190/89 H Pulse Oximetry 98 98 [facility] - Extremity Injury (Upper) <KATIANA Gates - Last Filed: 01/08/21 23:13> Differential Diagnosis Differential diagnosis: Likely other (hand/finger laceration) Medical Records Attestation: I reviewed the patient's medical records. [facility] Narrative Medical decision making narrative: This is a 75-year-old gentleman who presents to ED with 2 lacerations on palmar aspect of left hand in ring finger distal metacarpal and ring finger MCP joint. These lacerations were repaired by total 10 sutures and please see the procedural note. Discussed with patient of wound care at home, wound recheck in 2 days, suture removal in 7-10 days. Advised to hand splint was made by ortho glass to protect sutures. Return precautions discussed with patient and he verbalized understanding and agreement with the treatment plan. Discharge Plan Departure Patient Disposition: Home Clinical Impression: Laceration of hand Qualifiers: Encounter type: initial encounter Foreign body presence: without foreign body Laterality: left Qualified Code(s): S61.412A - Laceration without foreign body of left hand, initial encounter Instructions: DI for Laceration Repair Activity Restrictions/Additional Instructions: You have been diagnosed with [laceration in left 5th distal metacarpal and base of 4th finger repaired with well 10 sutures. Tdap has been updated today.]. What to do: *Take your medications as directed. You can take [id number] Tylenol as needed for discomfort. You can Take 650 mg up to 3 times a day as needed for pain. You can use hand splint tomorrow went bulky dressing is removed to protect sutures. *Follow up with your primary care provider in 2-3 days, call for an appointment for wound recheck. Let them know you were seen in the ED and that we asked you to be seen in follow up. Please do not get your wound soaked in the water until suture removal. Keep your dressing intact for next 24 hrs. After then, you could remove your dressing, wash with soap and water. Pat dry with clean paper towel and dress it with antibiotic ointment. You can change dressing as needed and daily. Please monitor for signs and symptoms for infection such as increasing redness, swelling, warmth, pain, fever, purulent discharge. If this occurs, please return to ED or follow up with your primary care physician since your wound may be gotten infected. Please follow up with your primary care provider in 2-3 days for recheck wound. Your suture should be removed [ 7-10 ] days. This can be done by your primary provider, walk-in clinic or here in ED. Please keep your wound clean, dry and intact all times. Prescriptions: No Action budesonide-formoterol [Symbicort] 80 MCG/4.5 MCG HFA aerosol inhaler 2 inh INH BID Qty: 3 RF: 1 montelukast [Singulair] 10 mg tablet 10 mg PO QPM RF: 0 aspirin 81 mg Tablet,Chewable 81 mg PO DAILY RF: 0 albuterol sulfate [Ventolin HFA] 90 MCG/PUFF HFA aerosol inhaler 1 puff INH Q6HP PRN (Reason: Shortness Of Breath) RF: 0 hydroxyurea [Hydrea] 500 mg Capsule 500 mg PO USEASDIRECTD Qty: 1000 RF: 0 Referrals: Darryn Engle MD [Primary Care Provider] - <Paige Cannon DO - Last Filed: 01/16/21 02:31> Cosign ED Attending Cosrazature Attestation: I was immediately available in the department for consultation. Documentation has been reviewed.
[2021-01-08 18:18] VITALS: BP 190/89; PULSE 89; RESP 16; O2SAT 98
== END 2021-01-08 18:17 | disposition home or self-care (01) ==
PROVIDERS: Emergency Provider Nurse Practitioner Family; PCP Internal Medicine
DX: S61.412A Laceration without foreign body of left hand, initial encounter (principal); W26.8XXA Contact with other sharp object(s), not elsewhere classified, initial encounter
CPT/HCPCS: 12002; 99283

== ENCOUNTER → 2021-04-10 09:18 | Outpatient (CLI) | payer MEDICARE, SELFPAY ==
[2021-04-10 09:59] LABS: Cholesterol 175 mg/dL (140-199); HDL Cholesterol 47 mg/dL (40-60); LDL Cholesterol Calculated 104 mg/dL (<100); Triglycerides 118 mg/dL (35-150)
== END ==
PROVIDERS: PCP Internal Medicine; Referring Provider Internal Medicine; Visit Provider Internal Medicine
DX: Z13.220 Encounter for screening for lipoid disorders (principal)
CPT/HCPCS: 36415; 80061

== ENCOUNTER → 2021-06-08 11:11 | Outpatient (CLI) | payer MEDICARE, SELFPAY ==
[2021-06-11 09:30] LABS: Fecal Immunochemical Test Negative (Negative)
== END ==
PROVIDERS: PCP Internal Medicine; Referring Provider Internal Medicine; Visit Provider Internal Medicine
DX: Z12.11 Encounter for screening for malignant neoplasm of colon (principal)
CPT/HCPCS: 82274

== ENCOUNTER → 2021-06-12 11:09 | Outpatient (CLI) | payer MEDICARE, SELFPAY ==
[2021-06-12 12:10] LABS: Add Manual Diff / Slide Review NO; Basophils Absolute Auto 0 /uL (0-100); Eosinophils Absolute Auto 200 /uL (0-450); Eosinophils Percent Auto 5.1 % (2-4); Hematocrit 33.5 % (41-53); Hemoglobin 11.6 g/dL (13.5-17.5); Lymphocytes Absolute Auto 700 /uL (1100-4500); Lymphocytes Percent Auto 14.1 % (25-40); Mean Corpuscular HGB Conc 34.6 % (30-36); Mean Corpuscular Hemoglobin 37.5 PG (26-34); Mean Corpuscular Volume 108.4 fL (80-100); Monocytes Absolute Auto 700 /uL (0-900); Monocytes Percent Auto 14.6 % (3-14); Neutrophils Absolute Auto 3100 /uL (1500-7000); Neutrophils Percent Auto 65.2 % (50-75); Platelet Count 592 X10^3/uL (150-400); Red Blood Cell Count 3.09 X10^6/uL (4.5-5.9); Red Cell Distribution Width 14.5 % (11.6-14.8); White Blood Cell Count 4.8 X10^3/uL (4.5-11.0)
[2021-06-12 12:25] LABS: Alanine Aminotransferase 23 IU/L (<50); Albumin 3.8 g/dL (3.5-5.0); Albumin Globulin Ratio 1.5 (1.0-2.8); Alkaline Phosphatase 60 U/L (38-126); Aspartate Aminotransferase 31 IU/L (17-59); BUN Creatinine Ratio 26.3 (6-22); Bilirubin Total 0.2 mg/dL (0.2-1.3); Blood Urea Nitrogen 20 mg/dL (9-20); C-Reactive Protein Quant < 0.5 mg/dL (<1.0); Calcium 8.5 mg/dL (8.4-10.2); Carbon Dioxide 27 mmol/L (22-32); Chloride 107 mmol/L (98-107); Estimated Glomerular Filt Rate > 60.0 mL/min (>60); Globulin 2.6 g/dL (1.7-4.1); Glucose 94 mg/dL (80-110); HEMOLYSIS < 15 (0-50); Potassium 4.2 mmol/L (3.4-5.1); Sodium 139 mmol/L (137-145); Total Protein 6.4 g/dL (6.3-8.2)
[2021-06-12 12:39] LABS: Erythrocyte Sedimentation Rate 36 MM/HR (0-15)
== END ==
PROVIDERS: PCP Internal Medicine; Referring Provider Internal Medicine; Visit Provider Internal Medicine
DX: D47.3 Essential (hemorrhagic) thrombocythemia (principal); J45.20 Mild intermittent asthma, uncomplicated; I77.6 Arteritis, unspecified
CPT/HCPCS: 36415; 80053; 85025; 85651; 86140

== ENCOUNTER → 2022-07-22 10:57 | Outpatient (CLI) | payer MEDICARE, SELFPAY ==
[2022-07-22 12:18] LABS: Cholesterol 159 mg/dL (140-199); HDL Cholesterol 41 mg/dL (40-60); LDL Cholesterol Calculated 91 mg/dL (<100); Triglycerides 137 mg/dL (35-150)
[2022-07-23 18:01] LABS: Fecal Immunochemical Test Negative (Negative)
== END ==
PROVIDERS: PCP Internal Medicine; Referring Provider Internal Medicine; Visit Provider Internal Medicine
DX: Z13.6 Encounter for screening for cardiovascular disorders (principal); Z12.11 Encounter for screening for malignant neoplasm of colon
CPT/HCPCS: 36415; 80061; 82274

== ENCOUNTER → 2023-05-07 08:34 | Outpatient (CLI) | payer MEDICARE, SELFPAY ==
--- NOTE | 2023-05-07 08:35 | DI.RAD.S_ITS ---
PROCEDURE: XR CHEST 2V INDICATIONS: Cough TECHNIQUE: 2 views of the chest were acquired. COMPARISON: [facility], , CHEST 2 VIEW, 11/14/2017, 15:59. [facility], [place], XR CHEST 1V, 07/28/2019, 2:28. FINDINGS: Surgical changes and devices: None. Lungs and pleura: Minimal streaky opacity at the left lung base. Suspect atelectasis. No consolidation. No pleural effusions or pneumothorax. Mediastinum: Mediastinal contours are normal. Heart size is normal. Bones and chest wall: No suspicious bony abnormalities. Soft tissues appear unremarkable. IMPRESSION: Suspect minimal atelectasis at the left lung base. Dictated by: Tim Urbina M.D. on 05/07/2023 at 9:19 Approved by: Tim Urbina M.D. on 05/07/2023 at 9:20
== END ==
PROVIDERS: PCP Internal Medicine; Referring Provider Nurse Practitioner Family; Visit Provider Nurse Practitioner Family
DX: R05.9 Cough, unspecified (principal)
CPT/HCPCS: 71046

== ENCOUNTER → 2023-08-26 11:29 | Outpatient (CLI) | payer MEDICARE, SELFPAY ==
[2023-08-26 14:00] LABS: TSH w/ Reflex to FT4 2.04 uIU/mL (0.47-4.68)
[2023-09-04 08:10] LABS: Percent Free Testosterone 1.97 % (1.50-4.20); Testosterone Free 8.34 ng/dL (5.00-21.00); Testosterone Total 423.5 ng/dL (264.0-916.0)
== END ==
PROVIDERS: PCP Internal Medicine; Referring Provider Internal Medicine; Visit Provider Internal Medicine
DX: R53.83 Other fatigue (principal); N52.9 Male erectile dysfunction, unspecified
CPT/HCPCS: 36415; 84402; 84403; 84443

== ENCOUNTER → 2023-12-16 12:08 | Outpatient (CLI) | payer MEDICARE, SELFPAY ==
--- NOTE | 2023-12-16 12:15 | DI.RAD.S_ITS ---
PROCEDURE: XR FOOT LT MIN 3V INDICATIONS: L FOOT PAIN TECHNIQUE: 3 views of the foot were acquired. COMPARISON: None. FINDINGS: Bones: No fractures or dislocations. No suspicious bony lesions. Plantar calcaneal enthesophyte. Soft tissues: No tibiotalar joint effusion. Achilles tendon appears normal. IMPRESSION: No acute bony abnormality. No significant degenerative change. Dictated by: Jung Verde M.D. on 12/16/2023 at 15:12 Approved by: Jung Verde M.D. on 12/16/2023 at 15:13
== END ==
PROVIDERS: PCP Internal Medicine; Referring Provider Podiatrist; Visit Provider Podiatrist
DX: Q66.52 Congenital pes planus, left foot (principal); M77.32 Calcaneal spur, left foot
CPT/HCPCS: 73630

== ENCOUNTER → 2024-01-16 13:58 | Outpatient (CLI) | payer MEDICARE, SELFPAY ==
[2024-01-16 15:18] LABS: Add Manual Diff / Slide Review NO; Basophils Absolute Auto 100 /uL (0-100); Basophils Percent Auto 1.4 % (0-2); Eosinophils Absolute Auto 300 /uL (0-450); Eosinophils Percent Auto 5.2 % (2-4); Hematocrit 28.6 % (41-53); Hemoglobin 10.2 g/dL (13.5-17.5); Lymphocytes Absolute Auto 600 /uL (1100-4500); Lymphocytes Percent Auto 8.9 % (25-40); Mean Corpuscular HGB Conc 35.5 % (30-36); Mean Corpuscular Hemoglobin 38.7 PG (26-34); Mean Corpuscular Volume 108.7 fL (80-100); Monocytes Absolute Auto 900 /uL (0-900); Monocytes Percent Auto 13.8 % (3-14); Neutrophils Absolute Auto 4600 /uL (1500-7000); Neutrophils Percent Auto 70.7 % (50-75); Platelet Count 643 X10^3/uL (150-400); Red Blood Cell Count 2.63 X10^6/uL (4.5-5.9); Red Cell Distribution Width 16.8 % (11.6-14.8); White Blood Cell Count 6.5 X10^3/uL (4.5-11.0)
[2024-01-16 15:59] LABS: Alanine Aminotransferase 15 IU/L (<50); Albumin 3.7 g/dL (3.5-5.0); Albumin Globulin Ratio 1.4 (1.0-2.8); Alkaline Phosphatase 64 U/L (38-126); Amylase 65 U/L (30-110); Aspartate Aminotransferase 24 IU/L (17-59); BUN Creatinine Ratio 23.5 (6-22); Bilirubin Total 0.3 mg/dL (0.2-1.3); Blood Urea Nitrogen 23 mg/dL (9-20); Carbon Dioxide 21 mmol/L (22-32); Chloride 109 mmol/L (98-107); Estimated Glomerular Filt Rate > 60 mL/min (>60); Globulin 2.6 g/dL (1.7-4.1); Glucose 99 mg/dL (80-110); HEMOLYSIS < 15 (0-50); Lipase 75 U/L (23-300); Potassium 4.8 mmol/L (3.4-5.1); Sodium 138 mmol/L (137-145); Total Protein 6.3 g/dL (6.3-8.2)
== END ==
PROVIDERS: PCP Internal Medicine; Referring Provider Internal Medicine; Visit Provider Internal Medicine
DX: R10.31 Right lower quadrant pain (principal)
CPT/HCPCS: 36415; 80053; 82150; 83690; 85025

== ENCOUNTER → 2024-01-20 09:12 | Outpatient (CLI) | payer MEDICARE, SELFPAY ==
--- NOTE | 2024-01-20 09:14 | DI.CT.S_ITS ---
PROCEDURE: CT ABDOMEN PELVIS W CON INDICATIONS: rlq pain/inguinal pain TECHNIQUE: After the administration of intravenous contrast, axial sections acquired from the lung bases to the pubic symphysis. Coronal and sagittal reformats were performed. For radiation dose reduction, the following was used: automated exposure control, adjustment of mA and/or kV according to patient size. COMPARISON: None. FINDINGS: Image quality: Diagnostic. Lower Chest: Dependent centrilobular nodules. Round lesion in the medial right lower lobe with enhancement measuring 3.0 x 2.4 cm (series 2, image 17). ABDOMEN: Liver: No solid mass. Gallbladder: No radiopaque gallstones or wall thickening. Biliary ducts: No biliary dilation. Pancreas: No ductal dilation. Spleen: Size is within normal limits. Adrenal Glands: No adrenal nodules. Kidneys and Ureters: No hydronephrosis. No solid mass. No complex renal cystic lesion which requires follow up. Stomach and Bowel: Normal colonic caliber, without significant wall thickening. Peritoneum: No abnormal intraperitoneal fluid. No free air. Ventral Wall: No significant ventral hernia. Small umbilical hernia containing fat. Abdominal Nodes: No retroperitoneal or mesenteric adenopathy by size criteria. Vessels: Aorta and inferior vena cava are normal in size. PELVIS: Pelvic Organs: Unremarkable. Bladder: No bladder wall thickening, accounting for underdistention. Pelvic Nodes: No enlarged lymph nodes. Miscellaneous: Small right inguinal hernia containing fat. Bones: No aggressive osseous abnormality. IMPRESSION: Patchy bibasilar centrilobular nodules and focus of rounded enhancing solid consolidation in the right lower lobe. This consolidation probably represents rounded atelectasis, less likely malignancy. Given the lower lobe predominant distribution of centrilobular nodules, findings may indicate infectious or inflammatory bronchiolitis. Short-term follow-up with low-dose chest CT (2-3 months) is recommended to exclude malignancy. Small right inguinal hernia containing fat. Normal appendix, normal gallbladder, no nephrolithiasis. Dictated by: Jung Verde M.D. on 01/20/2024 at 11:26 Approved by: Jung Verde M.D. on 01/20/2024 at 11:32
== END ==
LOC: CT 09:13
PROVIDERS: PCP Internal Medicine; Referring Provider Internal Medicine; Visit Provider Internal Medicine
DX: R10.31 Right lower quadrant pain (principal); R91.8 Other nonspecific abnormal finding of lung field; K40.90 Unilateral inguinal hernia, without obstruction or gangrene, not specified as recurrent; K42.9 Umbilical hernia without obstruction or gangrene
CPT/HCPCS: 74177; Q9967

== ENCOUNTER → 2024-03-31 14:54 | Outpatient (CLI) | payer MEDICARE, SELFPAY ==
[2024-04-01 12:55] LABS: Hep C Virus Ab w/Reflex Quant NEGATIVE s/c (NEGATIVE)
== END ==
PROVIDERS: PCP Internal Medicine; Referring Provider Internal Medicine; Visit Provider Internal Medicine
DX: Z20.9 Contact with and (suspected) exposure to unspecified communicable disease (principal)
CPT/HCPCS: 36415; 86803

== ENCOUNTER → 2024-05-11 07:05 | Outpatient (CLI) | payer MEDICARE, SELFPAY ==
--- NOTE | 2024-05-11 07:07 | DI.CT.S_ITS ---
PROCEDURE: CT CHEST WO CON INDICATIONS: Follow up to prior CT A/P TECHNIQUE: Noncontrast 5 mm thick sections acquired from the pulmonary apices to the posterior costophrenic angles. 1 mm lung window, 5 mm thick coronal and sagittal and 7 mm axial MIP reformats were then acquired. For radiation dose reduction, the following was used: automated exposure control, adjustment of mA and/or kV according to patient size. COMPARISON: [facility], CT, CT ABDOMEN PELVIS W CON, 01/20/2024, 10:30. FINDINGS: Image quality: Diagnostic. Lungs and Pleura: Interval resolution of subpleural rounded opacity within the medial right lung base and additional patchy nodular opacities within the medial left lung base and centrilobular micro nodules/tree-in-bud pattern within both lung bases. Bandlike density within the medial right lung base in the area of prior rounded opacity likely related to scarring. Additional patchy linear densities within both lung bases in prior areas of tree-in-bud pattern most likely scarring. No new focal airspace opacity or consolidation. Mild degree of peribronchial thickening involving both lower lobes and to a lesser extent right middle lobe and lingula. Tiny perifissural nodules abutting the minor fissure within the right middle lobe (series 3, images 194 and 199). No evidence of pneumothorax or pleural effusion. Lower Neck: No enlarged lymph nodes. Thyroid: No thyroid nodules which require sonographic follow up, per consensus guidelines. Axillae: No enlarged lymph nodes. Chest Wall: Unremarkable. Bones: Unremarkable. Heart: Heart size is normal. No pericardial effusion. Thoracic Vessels: The aorta and pulmonary arteries demonstrate normal size. Mediastinum and Sydnie: No enlarged lymph nodes. Esophagus: No wall thickening. No hiatal hernia. Upper Abdomen: Visualized upper abdomen solid organs and bowel loops appear normal. IMPRESSION: Interval resolution of bibasilar opacities and micronodularity/tree-in-bud pattern within both lung bases seen on prior CT examination of 01/20/2024 and likely reflecting resolved infectious or inflammatory pneumonitis or bronchiolitis. Mild degree of residual scarring in both lung bases. Dictated by: Rell Starks M.D. on 05/11/2024 at 9:58 Approved by: Rell Starks M.D. on 05/11/2024 at 10:16
== END ==
PROVIDERS: PCP Internal Medicine; Referring Provider Internal Medicine; Visit Provider Internal Medicine
DX: R91.8 Other nonspecific abnormal finding of lung field (principal); R05.3 Chronic cough
CPT/HCPCS: 71250

== ENCOUNTER 2024-07-06 10:08 | Day surgery (SDC) | payer MEDICARE, SELFPAY ==
[2024-07-02 07:24] VITALS: BMI 25.5
[2024-07-06] VITALS (10 sets, daily range): BP systolic 131–161; BP diastolic 54–89; PULSE 69–90; RESP 10–18; TEMP 36.1–36.9; O2SAT 94–98; BMI 24.3
[2024-07-06] MEDS: ACETAMINOPHEN 325 MG TABLET 650 MG PO (10:43)
[2024-07-06] MEDS: ALBUTEROL/IPRATROPIUM 3 ML AMPUL INH (10:45)
[2024-07-06] MEDS: LACTATED RINGERS 1,000 ML 42 ML IV (10:45)
--- NOTE | 2024-07-06 11:21 | PM.PREOP ---
Pre-operative Note COVID-19 COVID-19 status: Not tested Interval Note History & Physical reviewed/Exam performed by Physician: Yes Changes to H&P: No ASA Class (for procedural sedation): II
--- NOTE | 2024-07-06 11:34 | SUR.OPER ---
Supine on padded OR bed, head on pillow, arms padded and tucked at sides, legs uncrossed, safety belt at thigh, tape over blanket over lower legs .
[2024-07-06] MEDS: CEFAZOLIN 2 GM/100 ML PREMIX 100 ML IV (12:00)
[2024-07-06] MEDS: BUPIVACAINE 0.5% W/ EPI (PF) 30 ML VIAL INJ (12:05)
--- NOTE | 2024-07-06 13:27 | PM.OP.1 ---
Operative Date/Time/Diagnoses Date of procedure: 07/06/24 Time of procedure: 13:27 Pre-op diagnosis: Recurrent right inguinal hernia Post-op diagnosis: same Procedure & Clinicians Procedure: Laparoscopic recurrent right inguinal hernia repair with mesh Same procedure as scheduled: Yes Surgeon: Joseph Vaughn Anesthesia Type: General Operative Notes Procedure in detail: The patient was given preoperative antibiotics. The patient was brought to the operating room, placed on the table in the supine position with the arms tucked and general anesthesia was induced. The abdomen was prepped and draped in the usual fashion. A time-out was performed. A 1 cm supraumbilical incision was created and dissection was carried down to the anterior sheath. The fascia was scored transversely with cautery. The inferior leaf of the fascia was grasped with a Darci clamp to elevate abdominal wall and a Peon clamp was used to seay the peritoneum. The Katrina port was placed and the abdomen was insufflated to 15 mmHg. The camera was inserted, there was no evidence of any injury from the entry. There was a direct recurrent right inguinal hernia. Some mesh was visible in the direct space and it appeared that the recurrence was medial to the edge of the mesh. 5 mm ports were placed under direct vision in the mid left and mid right abdomen. The patient was positioned in steep Trendelenburg. We created right peritoneal flap. The peritoneum was dissected from the cord structures and out of the direct hernia defect. A large right Bard mesh was brought in and placed over the defect with the medial edge against Isaías's ligament. We then closed the peritoneal flap with a running 3-0 barbed suture. There was a large rent in the peritoneum which was also closed with a running 3-0 barbed suture. We took one last look around the abdomen and saw no other abnormalities. The suture was removed and accounted for. The 5 mm ports were removed under direct vision. The abdomen was desufflated. The Katrina port was removed. Additional local was injected into the fascia and the fascial incision was closed with 2 interrupted 0 Vicryl sutures. The skin incisions were closed with 4 Monocryl, Steri-Strips and Band-Aids. EBL: 10 mL Post-operative Condition: stable Disposition: PACU
[2024-07-06] MEDS: OXYCODONE IR 5 MG TABLET PO ×2 (13:40→14:08)
[2024-07-06] MEDS: HYDROMORPHONE 1 MG INJ IV ×3 (13:41→13:55)
--- NOTE | 2024-07-06 14:20 | SUR.PHASEII ---
Report given to
== END 2024-07-06 11:47 | disposition home or self-care (01) ==
PROVIDERS: PCP Internal Medicine; Referring Provider Surgery; Visit Provider Surgery
PROC: 0YQ54ZZ Repair Right Inguinal Region, Percutaneous Endoscopic Approach (ICD-10-PCS; CPT 49651; principal; 2024-07-06 11:15)
DX: K40.91 Unilateral inguinal hernia, without obstruction or gangrene, recurrent (principal)
CPT/HCPCS: 49651; J0690; J1100; J1171; J2405; J2704; J3010